=== PATIENT | female | born 1990 | race Caucasian/White ===

== ENCOUNTER 2019-02-04 19:19 | Inpatient (IN) | payer MEDICAID, OTHER, SELFPAY ==
[~2019-02-04 19:19] MED LIST: Bupivacaine HCl 0.5%/Epinephrine 1:200,000/PF 30 ml Vial ONE
[2019-02-04] MEDS: Lactated Ringer's 1,000 ML IV SCH (20:15)
[2019-02-04] MEDS ORDERED: Ibuprofen 800 MG TAB PO PRN (20:21)
[2019-02-04] MEDS ORDERED: Acetaminophen 500 MG TAB PO PRN (20:21)
[2019-02-04] MEDS ORDERED: Ondansetron PF 4 MG/2 ML Vial IVP PRN (20:21)
[2019-02-04] MEDS ORDERED: hydrALAZINE 20 MG/ML VIAL SLOW IVP PRN (20:21)
[2019-02-04] MEDS ORDERED: Lidocaine 1% (PF) 30 ML VIAL SC PRN (20:21)
[2019-02-04] MEDS ORDERED: NS / Oxytocin 40 units/1000ml 1,000 ML IV PRN (20:21)
[2019-02-04] MEDS ORDERED: Promethazine HCl 25 MG/ML VIAL IM PRN (20:21)
[2019-02-04] MEDS ORDERED: Butorphanol Tartrate 1 MG/ML VIAL SLOW IVP PRN (20:21)
[2019-02-04] MEDS ORDERED: Misoprostol 100 MCG TAB VAG SCH (20:30)
--- NOTE | 2019-02-04 20:40 | PDOC.FPROB ---
FMR OB H&P: HPI - History of Present Illness Chief Complaint: eIOL Indentification: 2770 @ 39.4wks (KIRSTY 02/07/2019 by LMP 10.4wk sono) History of Present Illness: Arthur is a healthy 28 yo here for eIOL at 39.4 wks. She denies contractions, LOF, VB, discharge, dysuria. She has good movement. [place] preferred. She is pcn allergic, but tolerated keflex early in for asymptomatic GBS bacteruria. FMR OB H&P: Current - Care : 3 Para: 2001 Gestational age: 39.4 Due date: 02/07/2019 Dating Criteria: LMP / 10.4wk sono Total weight gain: 39lb - OB Labs Blood type: A RH: positive Antibody Screen: negative HIV: negative RPR: negative HepBsAg: negative Rubella: immune Quad screen: negative Gonorrhea: negative Chlamydia: negative Pap Smear: NILM 07/2018 1 hour gtt: 99 GBS: positive H&H: 01/14/19 (12.1/35.3) Additional labs: GDM negative - Anatomy Survey Anatomy survey: [place] 9.8% @ 19.4 wks, 40.8% @ 28.1 wks FMR OB H&P: History - Past Medical History PMH: none - OB History OB History: Normal vaginal deliveries x 2 - FLY FISHING GUIDE History FLY FISHING GUIDE History: No history of STDs - Surgical History Sx History: Denies - Social History Social History: Denies alcohol, tobacco, or drug use. - Family History Family History: Non-contributory FMR OB H&P: Medications - Current Home Medications: Medication Instructions Recorded Confirmed Type 21/Iron Fu/Folic Acid 1 tablet PO DAILY 04/07/16 02/04/19 History [ Complete Caplet] Allergies/Adverse Reactions: Allergies Allergy/AdvReac Type Severity Reaction Status Date / Time Penicillins Allergy Verified 04/07/16 20:53 FMR OB H&P: A/P - Problem List (1) GBS bacteriuria Current Visit: Yes Status: Acute Code(s): R82.71 - BACTERIURIA (2) Anemia affecting in third trimester Current Visit: Yes Status: Acute Code(s): O99.013 - ANEMIA COMPLICATING , THIRD TRIMESTER (3) Supervision of normal intrauterine in multigravida Current Visit: No Status: Acute Code(s): Z34.90 - ENCNTR FOR SUPRVSN OF NORMAL , UNSP, UNSP TRIMESTER Qualifiers: Trimester: third trimester Qualified Code(s): Z34.83 - Encounter for supervision of other normal , third trimester Comment: Discussion: Date/Time: 02/04/192039 28 yo @ 39.4 wks admitted for eIOL. sIUP- -admit, cytotec for cervical ripening, go:2 -consult anesthesia if pt desires epidural anemia of - -continue iron po bid gbs bacteruria- -pcn allergic -tolerated keflex in first trimester, will order ancef for ppx Addendum - Attending - Attending Attestation Date/Time: 02/05/19 7749 I personally evaluated the patient and discussed the management with Dr. Aguilera. I agree with the History, Examination, Assessment and Plan documented above with any addition or exceptions noted below. eIOL. GBS bacturia during . has been treated previously with keflex w/ o complication. Will ppx with ancef. infant in an oblique lie with head on right side of maternal pelvis within the pelvic brim. I discussed with patient and that possibility that the may reposition into an unfavorable lie which would result in the need for a C/S. They were agreeable to proceed with this IOL at this time.
[2019-02-04 20:58] LABS: Hemoglobin 12.6 g/dL (12.0-16.0); Mean Corpuscular HGB CONC 33.9 g/dL (32.0-36.0); Mean Corpuscular Hemoglobin 31.3 pg (27.0-31.0); Mean Corpuscular Volume 92.3 fL (78.0-98.0); Mean Platelet Volume 7.3 fL (7.4-10.4); Platelet Count 253 thou/uL (130-400); RBC Distribution Width 14.8 % (11.5-14.5); Red Blood Cell (RBC) Count 4.02 mill/uL (4.20-5.40); White Blood Cell (WBC) Count 7.1 thou/uL (4.8-10.8)
[2019-02-04] MEDS ORDERED: CEFAZOLIN 2 GM in Premix Bag 1 BAG IVPB SCH (21:30)
[2019-02-04 21:37] LABS: Syphilis Antibody Nonreactive (Nonreactive); Syphilis Antibody Index 0.05 S/CO (<1.00 Non-Reactive)
[2019-02-04 22:37] VITALS: BMI 29.6
[2019-02-04 23:58] LABS: HBSAg Index 0.15 S/CO (0-0.99); Hep B Surf Ag Non-Reactive S/CO (NonReactive)
[2019-02-05] MEDS: Lactated Ringer's 1,000 ML IV SCH ×2 (00:30→07:30)
--- NOTE | 2019-02-05 03:32 | PDOC.LDPN ---
Labor & Delivery Progress Note - Subjective Subjective: comfortable, other - Objective Vital signs reviewed and normal: yes General: NAD, resting Dilation: closed, unable to feel presenting part FHT: category 1 - Assessment (1) GBS bacteriuria Code(s): R82.71 - BACTERIURIA Current Visit: Yes Status: Acute (2) Anemia affecting in third trimester Code(s): O99.013 - ANEMIA COMPLICATING , THIRD TRIMESTER Current Visit: Yes Status: Acute (3) Supervision of normal intrauterine in multigravida Code(s): Z34.90 - ENCNTR FOR SUPRVSN OF NORMAL , UNSP, UNSP TRIMESTER Current Visit: No Status: Acute Qualifiers: Trimester: third trimester Qualified Code(s): Z34.83 - Encounter for supervision of other normal , third trimester Comment: Plan: other -: Ultrasound revealed baby's head in mom's right lower quadrant, which can be externally rotated fairly easily to midline. We will place the first cytotec and reevaluate for position in 3-4 hours. Addendum - Attending - Attending Attestation Date/Time: 02/05/19 2621 I personally evaluated the patient and discussed the management with Dr. Miller I agree with the History, Examination, Assessment and Plan documented above with any addition or exceptions noted below. I personally evaluated the patient prior to the placement of the first cytotec. Infant had a favorable but unstable lie. Will place cytotec and see if will move to a full cephalic position.
--- NOTE | 2019-02-05 03:37 | PDOC.LDPN ---
Labor & Delivery Progress Note - Subjective Subjective: comfortable - Objective Vital signs reviewed and normal: yes General: NAD [place] contractions every: 3 minutes Procedures: ultrasound-tranverse, head on maternal right - Assessment (1) GBS bacteriuria Code(s): R82.71 - BACTERIURIA Current Visit: Yes Status: Acute (2) Anemia affecting in third trimester Code(s): O99.013 - ANEMIA COMPLICATING , THIRD TRIMESTER Current Visit: Yes Status: Acute (3) Supervision of normal intrauterine in multigravida Code(s): Z34.90 - ENCNTR FOR SUPRVSN OF NORMAL , UNSP, UNSP TRIMESTER Current Visit: No Status: Acute Qualifiers: Trimester: third trimester Qualified Code(s): Z34.83 - Encounter for supervision of other normal , third trimester Comment: Plan: other (baby is now transverse; plan to monitor overnight on the NST for pt 's contraction pattern. If she stops nikolai, discussed considering an external cephalic version and restarting induction. However, we also discussed the chance of CS if baby remains transverse.) Addendum - Attending - Attending Attestation Date/Time: 02/05/19 7392 I personally evaluated the patient and discussed the management with Dr. Miller I agree with the History, Examination, Assessment and Plan documented above with any addition or exceptions noted below. At this time plan was to monitor the patient to see if contractions resolved. If ctx resolved and was still transverse, would consider ECV. If not will need to consider C/S. Prior to onset of IOL, I informed the patient and her of the possibility for the need for C/S should the move to a transverse or breech position. The were agreeable to proceeding with the induction.
--- NOTE | 2019-02-05 05:38 | PDOC.LDPN ---
Labor & Delivery Progress Note - Subjective Subjective: comfortable, painful contractions, vaginal pressure - Objective Vital signs reviewed and normal: yes General: NAD, breathing through contractions Uterine fundus: palpable contractions SVE: by nurse: 3/50/balottable FHT: category 1 [place] contractions every: 3min - Assessment (1) GBS bacteriuria Code(s): R82.71 - BACTERIURIA Current Visit: Yes Status: Acute (2) Anemia affecting in third trimester Code(s): O99.013 - ANEMIA COMPLICATING , THIRD TRIMESTER Current Visit: Yes Status: Acute (3) Supervision of normal intrauterine in multigravida Code(s): Z34.90 - ENCNTR FOR SUPRVSN OF NORMAL , UNSP, UNSP TRIMESTER Current Visit: No Status: Acute Qualifiers: Trimester: third trimester Qualified Code(s): Z34.83 - Encounter for supervision of other normal , third trimester Comment: (4) Vaginal delivery Code(s): O80 - ENCOUNTER FOR FULL-TERM UNCOMPLICATED DELIVERY Current Visit: No Status: Acute Plan: continue plan of care -: Repeat US shows that baby is still transverse; plan to manage pain with Stadol now. Will consider tocolytic to give some rest from q3min contractions. However, we also discussed the chance of CS if baby remains transverse. Addendum - Attending - Attending Attestation Date/Time: 02/05/19 0751 I personally evaluated the patient and discussed the management with Dr. Miller I agree with the History, Examination, Assessment and Plan documented above with any addition or exceptions noted below. I personally performed a bedside US at approximately 0730. head was still in the right hemipelvis below the pelvic brim as it was on my previous exam. Infant back was up. SVE at this time was 5/100/-4 which had changed from 3/50/- 4 at approximately 0400. Ctx every 2-[address] George come and evaluate the position with bedside US. He agreed that the head was still the presenting part of the and that labor could be continued. Will have anesthesia come and place epidural at this time due to patient discomfort. Will attempt maternal repositioning to help lower head into the pelvis. Dr. George also recommended needle amniotomy under direct visualization to aid in descent of the infant. I discussed the findings and plan with the patient and her using services mgr services. Patient was anxious and tearful at times at the possibility of a C/S. I reassured her that we would continue to try to delivery the baby vaginally but the possibility still remains that the may fall into an unfavorable position and require urgent C/S. She and her expressed understanding.
[2019-02-05] MEDS ORDERED: CEFAZOLIN 1 GM in Sodium Chloride 0.9% 100 ML IVPB SCH (06:00)
[2019-02-05] MEDS ORDERED: Fentanyl 4 mcg/Bup 0.1% Cadd 100 ML ONE (07:25)
[2019-02-05] MEDS: Misoprostol 100 MCG TAB VAG SCH ×2 (08:09→15:04)
[2019-02-05] MEDS ORDERED: diphenhydrAMINE 50 MG/ML VIAL IVP PRN (08:13)
[2019-02-05] MEDS ORDERED: Promethazine HCl 25 MG/ML VIAL IM PRN (08:13)
[2019-02-05] MEDS ORDERED: Lactated Ringer's 500 ML IV PRN (08:13)
[2019-02-05] MEDS ORDERED: ePHEDrine/0.9% NaCl/PF SYRINGE 50 mg/10 ml SLOW IVP PRN (08:13)
[2019-02-05] MEDS ORDERED: Naloxone HCl 0.4 mg/ml Vial IVP PRN ×2 (08:13)
[2019-02-05] MEDS ORDERED: Acetaminophen 325 MG TAB PO PRN (08:13)
[2019-02-05] MEDS ORDERED: Ondansetron PF 4 MG/2 ML Vial IVP PRN ×2 (08:13→13:15)
[2019-02-05] MEDS ORDERED: Fentanyl 4 mcg/Bupivacaine 0.1% Cassette 100 ML EPIDURAL SCH (08:15)
[2019-02-05] MEDS ORDERED: Communication Order-Pharmacy FS SCH (08:15)
[2019-02-05] MEDS ORDERED: Methylergonovine 0.2 MG/ML VIAL ONE (11:28)
[2019-02-05] MEDS ORDERED: NS / Oxytocin 40 units/1000ml 1,000 ML ONE (11:28)
[2019-02-05] MEDS ORDERED: Carboprost 250 MCG/ML AMP ONE (11:28)
[2019-02-05] MEDS: NS / Oxytocin 40 units/1000ml 1,000 ML IV SCH ×2 (11:37→12:35)
[2019-02-05] MEDS: Misoprostol 200 MCG TAB ONE ×2 (11:45→15:04)
[2019-02-05 11:58] LABS: Actual Bicarbonate (HCO3a) 22.1 mEq/L (22-28); Base Excess (BEa) -5.6 mEq/L (-2.0 to +3.0)
[2019-02-05 12:01] LABS: Actual Bicarbonate (HCO3v) 22 mEq/L (22-28); Base Excess -4.9 mEq/L (-2.0 to +3.0); pH (Cord, venous) 7.29 (7.32-7.43)
[2019-02-05] MEDS ORDERED: Preparation H Ointment 28 GM TUBE PR PRN (13:15)
[2019-02-05] MEDS ORDERED: Lanolin Ointment 7 GM TUBE TOP PRN (13:15)
[2019-02-05] MEDS ORDERED: Adacel (T-DAP) 0.5 ML SYRINGE IM ONE (13:15)
[2019-02-05] MEDS ORDERED: hydrALAZINE 20 MG/ML VIAL SLOW IVP PRN (13:15)
[2019-02-05] MEDS ORDERED: Bisacodyl 10 MG SUPP PR PRN (13:15)
[2019-02-05] MEDS ORDERED: diphenhydrAMINE 25 MG CAP PO PRN (13:15)
[2019-02-05] MEDS ORDERED: Milk Of Magnesia 30 ML UDCUP PO PRN (13:15)
[2019-02-05] MEDS ORDERED: Benzocaine-Menthol 82.5 ML CAN TOP PRN (13:15)
[2019-02-05] MEDS: Ferrous Sulfate 325 MG TAB PO SCH (15:46)
[2019-02-05] MEDS: Ibuprofen 800 MG TAB PO SCH (16:25)
[2019-02-05] MEDS ORDERED: Sodium Chloride 0.9% 10 ML ONE (20:53)
[2019-02-05] MEDS: Docusate Calcium (SURFAK) 240 MG CAP PO SCH (21:17)
[2019-02-06] MEDS: Ibuprofen 800 MG TAB PO SCH ×4 (00:15→21:48)
[2019-02-06] MEDS: Docusate Calcium (SURFAK) 240 MG CAP PO SCH ×2 (07:55→21:49)
[2019-02-06] MEDS: Prenatal Vitamin 1 TAB PO SCH (07:55)
[2019-02-06] MEDS: Ferrous Sulfate 325 MG TAB PO SCH ×2 (08:19→16:27)
--- NOTE | 2019-02-06 08:59 | PDOC.PP ---
Post Progress Note Post Day #: 1 Subjective: Pt reports doing well. Reports lochia as a little heavier but reports overall normal. Denies any dizziness, headaches or vision changes. Denies any fever or chills. Denies any chest pain or SOB. Pt denies any swelling. Pt and reports doing well. PO intake tolerated: yes Flatus: yes Ambulation: yes Vital Signs (12 hours) Temp Pulse Resp BP Pulse Ox 02/06/19 07:08 98.1 F 79 20 103/55 L 97 02/06/19 05:00 97.7 F 75 18 115/56 L 97 02/06/19 00:00 99.0 F 87 18 119/62 97 Weight Weight 71.214 kg - Physical Examination General: NAD Cardiovascular: no m/r/g, RRR Respiratory: clear to auscultation bilaterally, non-labored breathing Abdominal: + bowel sounds, lochia (reported as heavier than normal period), no distention, appropriately TTP Fundus firm & at: above umbilicus about 5 cm. Firm, no clots expressed on palpation Extremities: negative homans (B) Neurological: no gross focal deficits Psychiatric: A&Ox3, normal affect Result Diagrams: 02/04/19 20:45 Additional Labs: Post Labs Blood Type A POSITIVE 02/04/19 21:22 Hep Bs Antigen Non-Reactive S/CO (NonReactive) 02/04/19 20:45 (1) GBS bacteriuria Code(s): R82.71 - BACTERIURIA Status: Acute (2) Vaginal delivery Code(s): O80 - ENCOUNTER FOR FULL-TERM UNCOMPLICATED DELIVERY Status: Acute - Assessment/Plan 28 yo ->3 @ 39.5 wks delivered MAZIN Mcnamara via on 02/05 @11:31 Post -Day 1 -Routine post care. Pain well controlled - and doing well. -Lochia reported as a little heavy. Uterus firm above umbilicus. Palpated and no clots expressed. -Pt reports possibly being ready for D/C later today anemia of - -continue iron po bid -[id number] -ASx gbs bacteruria- -pcn allergic -Ancef given for ppx. Adquately tx. Addendum - Attending - Attending Attestation Date/Time: 02/06/19 1136 I personally evaluated the patient and discussed the management with Dr. Robertson I agree with the History, Examination, Assessment and Plan documented above with any addition or exceptions noted below. Monitor tonight w/ D/C tomorrow since infant will not be d/c until 48 HOL.
[2019-02-07] MEDS: Ibuprofen 800 MG TAB PO SCH (05:11)
[2019-02-07 08:40] VITALS: BP 109/60; TEMP 98.1
[2019-02-07] MEDS: Docusate Calcium (SURFAK) 240 MG CAP PO SCH (09:25)
[2019-02-07] MEDS: Ferrous Sulfate 325 MG TAB PO SCH (09:25)
[2019-02-07] MEDS: Prenatal Vitamin 1 TAB PO SCH (09:25)
--- NOTE | 2019-02-07 11:01 | PDOC.PP ---
Post Progress Note Post Day #: 2 Subjective: Patient doing well. No significant overnight events. Patient tolerating PO, passing flatus, ambulating without difficulty. Patient well. PO intake tolerated: yes Flatus: yes Ambulation: yes Vital Signs (12 hours) Temp Pulse Resp BP Pulse Ox 02/07/19 08:39 98.1 F 66 20 109/60 97 Weight Weight 71.214 kg - Physical Examination General: NAD Cardiovascular: RRR Respiratory: non-labored breathing Abdominal: + bowel sounds, lochia (minimal), no distention, appropriately TTP Fundus firm & at: below umbilicus Skin: no rash Neurological: no gross focal deficits Psychiatric: A&Ox3, normal affect Result Diagrams: 02/04/19 20:45 Additional Labs: Post Labs Blood Type A POSITIVE 02/04/19 21:22 Hep Bs Antigen Non-Reactive S/CO (NonReactive) 02/04/19 20:45 (1) Term delivered Code(s): O80 - ENCOUNTER FOR FULL-TERM UNCOMPLICATED DELIVERY Status: Acute (2) GBS bacteriuria Code(s): R82.71 - BACTERIURIA Status: Acute (3) Vaginal delivery Code(s): O80 - ENCOUNTER FOR FULL-TERM UNCOMPLICATED DELIVERY Status: Acute - Assessment/Plan 28 yo ->3 @ 39.5 wks delivered MAZIN F via on 02/05 @11:31 Post -Day 2 -Routine post care. Pain well controlled - and doing well. -Lochia reported as minimal. Anemia of -Continue iron po bid -QBL 245 mL -ASx GBS bacteruria - Pcn allergic -Ancef given for ppx. Adquately tx. Dispo: D/C home today. Addendum - Attending - Attending Attestation Date/Time: 02/07/19 1322 I personally evaluated the patient and discussed the management with Dr. Omer I agree with the History, Examination, Assessment and Plan documented above with any addition or exceptions noted below. No events overnight. D/C today. F/U 2 weeks.
--- NOTE | 2019-02-07 12:34 | OP ---
DATE OF PROCEDURE: 02/05/2019 DELIVERING PHYSICIAN: Dr. Mahmood and Dr. Omer. ATTENDING: Dr. Stewart, present and supervised entire procedure PROCEDURE: Spontaneous vaginal delivery. ANESTHESIA: Epidural. QBL: 245 mL. PREOPERATIVE DIAGNOSES: 1. Term intrauterine in labor. 2. Anemia of . 3. GBS positive, being treated with antibiotics. POSTOPERATIVE DIAGNOSES: 1. Term intrauterine , delivered. 2. Anemia of . 3. GBS positive, adequately treated with antibiotics. INDICATIONS: A 28-year-old female, G3, P2-0-0-2, presents in active labor following elective induction at 39.5 weeks gestation. DELIVERY NOTE: This is a 28-year-old female, G3, P2-0-0-2 at 39.5 weeks, who delivered a viable female on 02/05/2019 at 11:31. Antepartum course consisted of concern for proper engagement of head. However, this resolved and a vigorous female was delivered over an intact perineum in the occiput anterior position. Anterior shoulder and then remainder of the body delivered. No nuchal cord. Head was held down and mouth and nares were bulb suctioned. Cord was clamped and there was delayed cord clamping performed. A section of cord was set aside for cord gases and cord blood was then collected. Placenta delivered intact with a 3-vessel cord noted. Fundal massage was performed and the fundus was firm. The cervix and vagina were inspected and found to be free of lacerations. The perineum was noted to have a small first-degree hemostatic laceration, which was not repaired. Infant went to the [facility] in good condition for routine care. Apgars were 9 and 9 at one and five minutes respectively. The patient tolerated delivery well and went to after routine recovery. Dictated by: Kinza Mahmood MD PGY1 Job ID: [id number] ATTENDING ADDENDUM: on 02/05/19 at 11:31. IOL complicated by Right head down oblique lie at presentation that resolved at approximately 0700 on the morning of delivery. Interpartum course unremarkable. Uncomplicated . First degree perineal lac noted to be hemostatic and not repaired. Routine care following delivery. MTDD
--- NOTE | 2019-02-08 10:00 | PQF ---
Arthur Bruce MARK *r [id number] CLINICAL DOCUMENTATION CLARIFICATION FORM: POST DISCHARGE Addendum to original discharge summary date: ____ Late entry note date: __ DATE:02/08/2019 ATTN:SOL FISHMAN Please exercise your independent, professional judgment in responding to the clarification form. Clinical indicators are provided on the bottom of this form for your review Please check appropriate box(s) to clarify the GBS bacteriuria as: [ X ] GBS bacteriuria is in carrier state [ ] GBS bacteriuria is in infectious [ ] Other diagnosis [ ] Unable to determine For continuity of documentation, please document condition throughout progress notes and discharge summary. Thank You. CLINICAL INDICATORS - SIGNS / SYMPTOMS / LABS GBS bacteriuria,Tolerated keflex in first trimester-Documented in OB H&P on by Ale sheikh 39.5 wks delivered TAGA via on 02/05-Documented in Post PN on 02/06 by Héctor Robertson RISK FACTORS Anemia affecting in third trimester-Documented in OB H&P on 02/04 by Ale sheikh Term delivered -Documented in Post PN on 02/06 by Héctor Robertson TREATMENTS Ancef 1 gm IV given for PPX,Adquately tx-Documented in Post PN on 02/06 by Héctor Robertson (This form is maintained as a part of the permanent medical record) 2014 [employer] All Rights Reserved [email or web address] [not provided] MTDD
== END 2019-02-07 13:19 | disposition home or self-care (01) | DRG 807 ==
LOC: L&D 19:19 → 3SW 02-05 15:03
PROVIDERS: ADMIT Family Medicine; ATTEND Family Medicine
PROC: 10E0XZZ Delivery of Products of Conception, External Approach (ICD-10-PCS; principal; 2019-02-05)
DX: O99.824 Streptococcus B carrier state complicating childbirth (principal); Z37.0 Single live birth; O99.02 Anemia complicating childbirth; Z3A.39 39 weeks gestation of pregnancy; D64.9 Anemia, unspecified; O70.0 First degree perineal laceration during delivery; R82.71 Bacteriuria
CPT/HCPCS: 36415; 51702; 76815; 82805; 85027; 86780; 86850; 86900; 86901; 87340; J0595; J0670; J0690; J2210; J3490